=== PATIENT | female | born 1970 | race Caucasian/White ===

== ENCOUNTER 2017-02-26 13:27 | Outpatient (CLI) | payer OTHER ==
[2014-03-23 11:45] VITALS: BP 92/68
--- NOTE | 2017-02-26 15:46 | Diagnostic Imaging Report ---
RACH KAPLAN [facility] [address] [facility] [address] [id number] Report Submission Date: Feb 26, 2017 2:03:46 PM CDT Patient Study Name: TRINA CORTES Date: Feb 26, 2017 1:34:04 PM CDT Modality Type: CR Gender: F Description: SPINE : 72 Institution: [facility] Physician: RACH KAPLAN Examination: Cervical spine History: Discomfort Comparison exams: None available Findings: 2 views of the cervical spine demonstrate normal height and alignment. No anterior compression. No abnormal listhesis. Few anterior osteophytes. No prevertebral abnormality Impression: Early degenerative changes. No osseous abnormality. If patient has experiencing neurologic symptoms, consider obtaining MRI. Electronically signed on Feb 26, 2017 2:03:46 PM CDT by: Shahbaz ROSSI
== END 2017-02-26 14:02 ==
LOC: RAD 13:27
PROVIDERS: ATTEND Family Medicine
DX: M54.2 Cervicalgia (principal)
CPT/HCPCS: 72040